=== PATIENT | male | born 1945 | race Caucasian/White ===

== ENCOUNTER 2017-04-15 07:46 | Inpatient (IN) | payer BC, OTHER ==
[2017-03-17 10:54] VITALS: BMI 39.0
--- NOTE | 2017-03-17 11:39 | PAT Medication Instructions ---
Service Date Mar 17, 2017. Current Home Medication List Aspirin (Aspirin), 1 TAB PO HS Calcium/Vitamin D (Os-Swapnil 500 Plus D), 1 TAB PO BID Fish Oil (White Bird-3), 1 CAP PO BID Epfzpalvecc-Yqqalwhghkm-Msv C- (Glucosamine Chondroitin), 1 CAP PO BID Metoprolol Succ (Toprol Xl) (Toprol-Xl), 12.5 MG PO BID Naproxen (Naprosyn), 375 MG PO BID Polypodium Leucotomos (Heliocare), 1 CAP PO QAM Prednisone Tab (Prednisone), 10 MG PO QAM Rosuvastatin Calcium (Crestor), 20 MG PO QPM Triamcinolone Acet 0.025% (Aristocort 0.025%), 1 TOP TID PRN for SKIN IRRITATION [Doxipen Ec ], 10 MG PO HS Medication Instructions For Your Scheduled Surgery - Check with surgeon for instructions: Naproxen (Naprosyn), 375 MG PO BID - Hold the following medications 2 weeks prior to surgery: Fish Oil (White Bird-3), 1 CAP PO BID Mjkxhsbungd-Gyvrfuebann-Zqd C- (Glucosamine Chondroitin), 1 CAP PO BID Polypodium Leucotomos (Heliocare), 1 CAP PO QAM - Hold the following medications 24 hours prior to surgery: Triamcinolone Acet 0.025% (Aristocort 0.025%), 1 TOP TID PRN for SKIN IRRITATION - Hold the following medications the morning of surgery: Calcium/Vitamin D (Os-Swapnil 500 Plus D), 1 TAB PO BID - Take the following medications the morning of surgery with a sip of water: Prednisone Tab (Prednisone), 10 MG PO QAM Metoprolol Succ (Toprol Xl) (Toprol-Xl), 12.5 MG PO BID - Take the following medications as scheduled the night before surgery: Rosuvastatin Calcium (Crestor), 20 MG PO QPM Metoprolol Succ (Toprol Xl) (Toprol-Xl), 12.5 MG PO BID Aspirin (Aspirin), 1 TAB PO HS (okay to continue per surgeon) [Doxipen Ec ], 10 MG PO HS If you have any questions please call us at [phone] or [phone] or [phone]
[2017-03-17 12:09] LABS: BASO % 0.3 %; BASO ABS # 0.04 K/uL (0-0.2); COMPLETE YES; EOS % 1.6 %; HEMATOCRIT 43.1 % (42-52); IG% 0.4 %; LYMPH % 13.8 %; LYMPH ABS # 1.87 K/uL (1.2-3.4); MEAN CELL VOLUME 90.7 fL (80-100); MEAN CORPUSCULAR HEMOGLOBIN 31.4 pg (25-34); MEAN CORPUSCULAR HGB CONC 34.6 g/dl (32-36); MEAN PLATELET VOLUME 8.7 fL (7.4-10.4); MONO % 5.4 %; NEUT % 78.5 %; PLATELET COUNT 211 K/uL (130-400); RED BLOOD COUNT 4.75 M/uL (4.7-6.1); WHITE BLOOD COUNT 13.58 K/uL (4.8-10.8)
[2017-03-17 12:19] LABS: PROTHROMBIN TIME (PATIENT) 10.3 SECONDS (9.0-12.0)
[2017-03-17 12:30] LABS: URINE APPEARANCE CLEAR (CLEAR); URINE BILIRUBIN NEG (NEG); URINE COLOR YELLOW; URINE NITRITE NEG (NEG); URINE SPECIFIC GRAVITY 1.017 (1.000-1.030); UROBILINOGEN NEG (NEG)
[2017-03-17 12:45] LABS: MANUAL MICROSCOPIC REQUIRED? NO; REVIEW REQ? NO
--- NOTE | 2017-03-17 12:50 | DIAGNOSTIC IMAGING REPORT ---
CHEST PREADMISSION(PA/LAT) HISTORY: 71 years Male preoperative exam. No chest complaints. COMPARISON: None available TECHNIQUE: Frontal and lateral views of the chest. FINDINGS: The cardiac silhouette is enlarged with obscuration of the left heart border suggesting left basilar atelectasis or scarring. There is atherosclerosis of the aorta. Prior median sternotomy. No pneumothorax or pleural effusion. There is moderate osteoarthritis of the right AC joint. The bones are grossly intact. IMPRESSION: Mild left basal atelectasis/scarring with otherwise unremarkable chest. The above report was generated using voice recognition software. It may contain grammatical, syntax or spelling errors. Electronically signed by: Ceasar Armenta M.D. 03/17/2017 12:49 PM Dictated Date/Time: 03/17/2017 12:47 PM
[2017-03-17 12:55] LABS: ESTIMATED AVERAGE GLUCOSE 163 mg/dl; HA1C FLAG Normal (Normal)
[2017-03-17 13:56] LABS: BUN/CREATININE RATIO 17.3 (10-20); CALCIUM 9.7 mg/dl (8.5-10.1); POTASSIUM 4.8 mmol/L (3.5-5.1)
--- NOTE | 2017-04-14 09:56 | HISTORY & PHYSICAL EXAMINATION ---
DATE OF ADMISSION: 04/15/2017 CHIEF COMPLAINT: Right hip pain. HISTORY OF PRESENT ILLNESS: The patient is a 71-year-old gentleman with known osteoarthritis about his right hip. He takes naproxen twice daily, he takes glucosamine chondroitin for osteoarthritis. He has pain with prolonged weightbearing and standing activities. He has difficulty with any kneeling, bending, or squatting activities. Due to ongoing pain and disability, the patient now desires to proceed with right total hip arthroplasty. PAST MEDICAL HISTORY: Coronary artery disease status post CABG, hypertension, hyperlipidemia, obesity, mild calcific aortic stenosis, obstructive sleep apnea, hypertension. PAST SURGICAL HISTORY: Left ankle, bypass surgery. MEDICATIONS: Aspirin 81 mg at bedtime, calcium 600 plus D twice daily, Crestor 20 mg daily, doxepin 10 mg 2 capsules daily, fish oil 1000 mg daily, glucosamine chondroitin daily, Heliocare 240 mg daily, metoprolol tartrate 25 mg half tablet 2 times daily, naproxen 375 mg twice daily, nitroglycerin 0.4 mg sublingual p.r.n. chest pain. ALLERGIES: No known drug allergies. SOCIAL HISTORY AND REVIEW OF SYSTEMS: Noncontributory. PHYSICAL EXAMINATION: GENERAL: Well-nourished, well-developed, obese male who appears his stated age. HEAD, EYES, EARS, NOSE, AND THROAT: Normocephalic, atraumatic, extraocular movements intact, oropharynx pink and moist. NECK: Supple without adenopathy. LUNGS: Clear to auscultation. HEART: Regular rate and rhythm. ABDOMEN: Soft, nontender, nondistended, obese. EXTREMITIES: The upper extremities are within normal limits. The right hip demonstrates limited range of motion. There is limitation of internal/external rotation with pain at end range. X-RAYS: X-rays were reviewed. He has severe osteoarthritis about the right hip with complete loss of the joint space. There are osteophytes about the acetabulum. ASSESSMENT: Right hip degenerative joint disease. PLAN: Risks versus benefits were discussed. Consent was obtained. The patient's primary care physician is Dr. Hubbard. His safety leader is [facility], Amanda Martinez, nurse practitioner. Will proceed with right total hip arthroplasty upon preoperative workup and medical clearance.
[~2017-04-15] VITALS: Ht 160 cm; Wt 100.7 kg
[2017-04-15] VITALS (9 sets, daily range): BP systolic 100–142; BP diastolic 55–96; PULSE 68–85; TEMP 36.4–36.8; O2SAT 93–97; Ht 160 cm; Wt 100.7 kg
[2017-04-15] MEDS: TRANEXAMIC ACID INJ 1,000 MG in SODIUM CHLORIDE 0.9% 100ML 100 ML IV SCH ×2 (06:30→10:24)
[~2017-04-15 07:46] MED LIST: ACETAMINOPHEN 500 MG TAB PO SCH; ASPI1TAB83 PO; BUPIVACAINE 0.5 % 5 MG/1 ML PF 10ML VIAL ONE; CALC500C70 PO; CEFAZOLIN 3000 MG/65 ML D5W 65 ML IV SCH; CRS/10 PO; CeleBREX 200 MG CAP PO SCH; DEXAMETHASONE 4 MG TAB PO SCH; FAMOTIDINE 20 MG TAB PO SCH; GABAPENTIN 300 MG CAP PO SCH; GLUC1CAP35 PO; LACTATED RINGER'S 1000ML 1,000 ML IV SCH; LACTATED RINGER'S 1000ML 500 ML IV ONE; METO25TA3 PO; METOCLOPRAMIDE HCL 10 MG TAB PO SCH; NAPR250T2 PO; OMEG10007 PO; PRED10TA PO; ROPIVACAINE 5MG/ML 30 ML 150 MG, BUPIVACAINE/EPINEPHR 0.5% MPF 30 ML, KETOROLAC TROMETH... INFIL SCH; TRMCR2515 TOP; [UNRECOGNIZED DRUG - CODE] PO; [UNRECOGNIZED DRUG - OTHER] PO
--- NOTE | 2017-04-15 09:21 | History & Physical Bridge Note ---
H&P Re-Evaluation Bridge Note: I have examined the patient, reviewed the History & Physical and in the interval since the performance of the History & Physical I have noted the following changes of clinical significance: No changes noted
[2017-04-15] MEDS ORDERED: MIDAZOLAM HCL 1 MG/ML 2ML VIAL ONE ×2 (09:25→09:26)
[2017-04-15] MEDS ORDERED: ORTHO JOINT ANESTHETIC ONE (09:50)
[2017-04-15] MEDS ORDERED: POVIDONE-IODINE OP SOLN 30 ML BTL ONE (09:50)
[2017-04-15] MEDS ORDERED: BACITRACIN 50000 UNIT VIAL ONE (09:50)
[2017-04-15] MEDS ORDERED: VASOPRESSIN 20 UNIT/ML VIAL ONE (10:42)
--- NOTE | 2017-04-15 11:42 | [facility] Post Operative Brief Note ---
Immediate Operative Summary Operative Date Apr 15, 2017. Pre-Operative Diagnosis Right Hip Degenerative Joint Disease Post-Operative Diagnosis Right Hip Degenerative Joint Disease Procedure(s) Performed Right Total Hip Arthroplasty--Uncemented Surgeon Dr. Lopez Forensic Chemist Surgeon(s) MELVIN Rider Estimated Blood Loss 100 ml Findings severe OA hip Specimens A. Right Femoral Head Disposition Recovery Room / PACU
[2017-04-15] MEDS ORDERED: ATROPINE SULFATE 0.1 MG/ML 5ML SYR IV PRN (11:45)
[2017-04-15] MEDS ORDERED: PHENYLEPHRINE 100MCG/ML 5ML SYR IV PRN (11:45)
[2017-04-15] MEDS ORDERED: HYDROmorphone INJ 2 MG/ML SYR/VIAL IV PRN (11:45)
[2017-04-15] MEDS ORDERED: ONDANSETRON INJ 2 MG/ML 2 ML VIAL IV PRN ×2 (11:45→12:00)
[2017-04-15] MEDS ORDERED: EpHEDrine SULFATE INJ 50 MG/ML AMP IV PRN (11:45)
--- NOTE | 2017-04-15 11:52 | OPERATIVE REPORT ---
DATE OF OPERATION: 04/15/2017 PREOPERATIVE DIAGNOSIS: Osteoarthritis right hip. POSTOPERATIVE DIAGNOSIS: Osteoarthritis right hip. PROCEDURE: Right connective total hip arthroplasty. SURGEON: Dr. Lopez. UTILIZATION MANAGEMENT UM NURSE: Semaj Joya PA-C. ANESTHESIA: Spinal. COMPLICATIONS: None. OPERATION AND FINDINGS: PROCEDURE: Following induction of adequate spinal anesthesia, the patient was placed in left lateral decubitus position and right Aj-Langenbeck incision was made. Subcutaneous tissue was sharply dissected. Electrocautery used for hemostasis. The fascia was incised throughout the length of the wound and a lr scissor placed beneath the short external rotators. The pyriformis was tagged with #1 Vicryl. The short external rotators were divided from the posterior aspect of the femur using electrocautery. These were swept posteriorly. A T-capsulotomy incision was made and the hip was dislocated using a combination of flexion, adduction, and internal rotation. Exposure of the femoral neck with old-style Hohmann and a blunt Hohmann was carried out and a femoral rasp was utilized as a guide for making the appropriate level femoral neck cut. This bone fragment was removed and reserved on the back table. Next, attention was turned to the acetabulum where bone hook was used to retract the femur while the offset retractors were placed anterior and posteriorly. A double-angled Hohmann was placed in superior and anterior position exposing the acetabulum nicely. Acetabular labrum as well as posterior capsule elements were removed using a long knife and a long pickup. Fovea centralis was cleared of all soft tissue. Sequential reamings were carried up to a size 54 and decision was made to proceed with impaction of a size 54 trabecular metal cup. This was impacted and held using a single 35 mm bone screw. The acetabular liner was placed with 15 of elevated posterior wall in the superior and posterior position. Next, attention was turned to the femoral portion of the case where a Bovie and pickup was used to further clear short external rotators from their insertion on the femur. Box osteotome was used to gain access to the femoral canal and the T-handled rasp and a rattail rasp were used to further open and lateral the canal. Sequentially raspings were carried up to a size 4 which gave good fit and fill of the proximal femur. A trial reduction was carried out and size 4 offset femoral neck component was chosen as the size to be used. A -2.5 x 36 mm ceramic femoral head was impacted into position, +0 head was utilized. The trial reduction was stable in all degrees of rotation with no [id number] impingement. The hip was dislocated. The trial components were removed and the final femoral stem, neck, and femoral head combination were assembled on the back table and impacted into position. Hip was relocated. Range of motion checked once again successful and the wound was irrigated. The pyriformis repaired to the greater trochanter using #1 Vicryl [id number] suture. A Hemovac drain was placed and the fascia was closed using #1 Vicryl, subcutaneous tissue was closed using 0 Dexon, and skin was closed with edward. Sterile dressing of Adaptic, 4 x 4's, ABDs, and foam tape was applied. The patient tolerated the procedure well. Recovery room stable. Due to the complex nature of the procedure, the entire surgery was performed with the operational assistance of Semaj Joya PA-C. The anesthesiologists' assistant, under direct supervision, was involved in the actual performance of all aspects of the surgical procedure including hemostasis, tissue retraction and incision, instrument management, patient positioning, and wound closure. I attest to the content of the Intraoperative Record and any orders documented therein. Any exception s are noted below.
[2017-04-15] MEDS ORDERED: PHENYLEPHRINE 100MCG/ML 5ML SYR ONE (11:55)
[2017-04-15] MEDS ORDERED: EpHEDrine SULFATE 50MG/5ML SYR ONE (11:55)
[2017-04-15] MEDS ORDERED: SUCCINYLCHOLINE 100MG/5ML SYR IV ONE (11:55)
[2017-04-15] MEDS ORDERED: ONDANSETRON INJ 2 MG/ML 2 ML VIAL ONE (11:55)
[2017-04-15] MEDS ORDERED: PROPOFOL IV EMULSION 10 MG/ML 20 ML VIAL IV ONE (11:55)
[2017-04-15] MEDS ORDERED: BISACODYL 10 MG SUPP PR PRN (12:00)
[2017-04-15] MEDS ORDERED: ZOLPIDEM TARTRATE 5 MG TAB PO PRN (12:00)
[2017-04-15] MEDS ORDERED: MoRPHine SULFATE 2 MG/ML CARP IV PRN (12:00)
[2017-04-15] MEDS ORDERED: ALUMINUM/MAGNESIUM/SIMETH (MAALOX MAX) 30 ML UDC PO PRN (12:00)
[2017-04-15] MEDS ORDERED: MAGNESIUM HYDROXIDE SUSP 30 ML UDC PO PRN (12:00)
[2017-04-15] MEDS ORDERED: METOCLOPRAMIDE HCL INJ 5 MG/ML 2 ML VIAL IV PRN (12:00)
[2017-04-15] MEDS ORDERED: SOD PHOSPHATE/SOD BIPHOSPHATE ENEMA 132 ML BTL PR PRN (12:00)
[2017-04-15] MEDS ORDERED: DiphenhydrAMINE HCL 50 MG/ML VIAL IV PRN (12:00)
--- NOTE | 2017-04-15 13:02 | DIAGNOSTIC IMAGING REPORT ---
AP PELVIS AND RIGHT HIP 2 VIEWS CLINICAL HISTORY: Postop hip arthroplasty COMPARISON STUDY: No previous studies for comparison. FINDINGS: There are postsurgical changes of a total right hip arthroplasty. The acetabular and femoral components appear well seated. Overlying surgical drains are visualized. There are no acute fractures. There are no dislocations. IMPRESSION: Postsurgical changes of a total right hip arthroplasty. Electronically signed by: Andre Jones M.D. 04/15/2017 1:01 PM Dictated Date/Time: 04/15/2017 1:00 PM
[2017-04-15] MEDS ORDERED: MoRPHine SULFATE 10 MG/ML CARP/VIAL IV PRN (13:15)
[2017-04-15] MEDS ORDERED: MoRPHine SULFATE 4 MG/ML 1 ML CARP\\VIAL IV PRN (13:15)
--- NOTE | 2017-04-15 14:03 | Anesthesiology Progress Note ---
Anesthesia Post Op Note Date & Time Apr 15, 2017 at 13:36 Vital Signs Pain Intensity: 0 Vital Signs Past 12 Hours Date Time Temp Pulse Resp B/P (MAP) Pulse Ox O2 Delivery O2 Flow Rate FiO2 04/15/17 13:10 110/61 04/15/17 13:05 37.2 70 18 102/48 96 Oxymask 2 04/15/17 13:00 109/60 04/15/17 12:55 71 18 91/39 96 Oxymask 2 04/15/17 12:45 67 18 100/43 98 Oxymask 2 04/15/17 12:35 70 18 107/79 98 Oxymask 5 04/15/17 12:25 67 18 103/55 98 Oxymask 10 04/15/17 12:16 36.2 67 20 92/58 96 Oxymask 10 04/15/17 08:42 36.8 68 20 142/96 95 Room Air Notes Mental Status: alert / awake / arousable, participated in evaluation Pt Amnestic to Procedure: Yes Nausea / Vomiting: adequately controlled Pain: adequately controlled Airway Patency, RR, SpO2: stable & adequate BP & HR: stable & adequate Hydration State: stable & adequate Anesthetic Complications: no major complications apparent Anesthetic Complications: When the spinal was placed pre-operatively it was done by the paramedian approach with a five inch quincke due to a significant amount of soft tissue and marked arthritis. He was given isobaric bupivacaine 2.8 ml. His first BP post procedure was in the 50s systolic. It was brought up with a combination of ephedrine and phenylephrine to the 90s. A few other doses of both drugs were given to support his pressure along with iv fluids. On the way to the o.r. he began to have trouble breathing and the glide scope was brought to the room. The patient was bagged for a few minutes and he was induced with propofol, given succinylcholine and intubated easily with the glidescope. He was given vasopressin 2 units which stabilized his blood pressure. He was extubated at the end of the case and taken to the PACU where he had an uneventful recovery.
[2017-04-15] MEDS: D5W AND 1/2NSS + 20MEQ KCL 1,000 ML IV SCH (14:41)
[2017-04-15] MEDS: KETOROLAC TROMETHAMINE 15 MG/ML VIAL IV. SCH ×2 (15:45→21:36)
[2017-04-15] MEDS ORDERED: TRANEXAMIC ACID INJ 1,000 MG in SODIUM CHLORIDE 0.9% 100ML 100 ML IV ONE (17:00)
[2017-04-15] MEDS: ACETAMINOPHEN IV 1,000 MG in EMPTY BAG 0 ML IV SCH (17:45)
[2017-04-15] MEDS: CEFAZOLIN IV 2,000 MG in DEXTROSE 5% 50ML 50 ML IV SCH (18:11)
[2017-04-15] MEDS: FERROUS GLUCONATE 324 MG TAB PO SCH (18:15)
[2017-04-15] MEDS: DOCUSATE SODIUM 100 MG CAP PO SCH (20:49)
[2017-04-15] MEDS: ROSUVASTATIN CALCIUM 10 MG TAB PO SCH (20:49)
[2017-04-15] MEDS: ASPIRIN 81 MG ECTAB PO SCH (20:49)
[2017-04-15] MEDS: METOPROLOL SUCC 25MG EXT REL TAB PO SCH (20:50)
[2017-04-15] MEDS: SENNA 8.6 MG TAB PO SCH (20:50)
[2017-04-16] MEDS: D5W AND 1/2NSS + 20MEQ KCL 1,000 ML IV SCH (00:22)
[2017-04-16] MEDS: CEFAZOLIN IV 2,000 MG in DEXTROSE 5% 50ML 50 ML IV SCH (01:55)
[2017-04-16] MEDS: ACETAMINOPHEN IV 1,000 MG in EMPTY BAG 0 ML IV SCH ×2 (01:55→10:14)
[2017-04-16] MEDS: KETOROLAC TROMETHAMINE 15 MG/ML VIAL IV. SCH ×2 (03:33→10:13)
[2017-04-16 03:55] VITALS: BP 114/62; PULSE 75; TEMP 36.6; O2SAT 93
[2017-04-16 05:49] LABS: COMPLETE YES; EOS % 0.1 %; HEMATOCRIT 34.4 % (42-52); IG% 0.4 %; LYMPH % 4.8 %; LYMPH ABS # 0.74 K/uL (1.2-3.4); MEAN CELL VOLUME 89.8 fL (80-100); MEAN CORPUSCULAR HEMOGLOBIN 30.5 pg (25-34); MEAN PLATELET VOLUME 8.9 fL (7.4-10.4); MONO % 8.8 %; NEUT % 85.9 %; PLATELET COUNT 198 K/uL (130-400); RED BLOOD COUNT 3.83 M/uL (4.7-6.1); WHITE BLOOD COUNT 15.27 K/uL (4.8-10.8)
[2017-04-16 06:57] VITALS: BP 134/80; PULSE 72; TEMP 36.4; O2SAT 96
--- NOTE | 2017-04-16 07:50 | Orthopedic Progress Note ---
Orthopedic Progress Note Date of Service Apr 16, 2017. Subjective Post OP Day: 1 Reports: feeling well Objective calves soft nontender, N/V intact, dressing C/D/I (Hemovac d/c'd), toes mobile Date Time Temp Pulse Resp B/P (MAP) Pulse Ox O2 Delivery O2 Flow Rate FiO2 04/16/17 06:57 36.4 72 18 134/80 (98) 96 Room Air 04/16/17 03:55 36.6 75 17 114/62 (79) 93 Room Air 04/16/17 00:00 Room Air 04/15/17 22:55 36.7 77 18 123/78 (93) 94 Room Air 04/15/17 19:57 36.7 85 19 110/59 (76) 93 Room Air 04/15/17 19:00 96 Room Air 04/15/17 16:51 36.4 81 21 118/70 (86) 94 Room Air 04/15/17 15:43 36.8 82 20 103/55 (71) 96 Nasal Cannula 2.0 04/15/17 14:42 80 19 103/60 (74) 96 Nasal Cannula 2.0 04/15/17 14:14 73 18 109/67 (81) 97 Nasal Cannula 2.0 04/15/17 13:30 Room Air 04/15/17 13:30 96 Nasal Cannula 2.0 04/15/17 13:30 36.6 76 16 100/63 (75) 96 Nasal Cannula 2.0 04/15/17 13:10 110/61 04/15/17 13:05 37.2 70 18 102/48 96 Oxymask 2 04/15/17 13:00 109/60 04/15/17 12:55 71 18 91/39 96 Oxymask 2 04/15/17 12:45 67 18 100/43 98 Oxymask 2 04/15/17 12:35 70 18 107/79 98 Oxymask 5 04/15/17 12:25 67 18 103/55 98 Oxymask 10 04/15/17 12:16 36.2 67 20 92/58 96 Oxymask 10 04/15/17 08:42 36.8 68 20 142/96 95 Room Air Laboratory Results 24 Hours: Test 04/16/17 05:19 White Blood Count 15.27 K/uL Red Blood Count 3.83 M/uL Hemoglobin 11.7 g/dL Hematocrit 34.4 % Mean Corpuscular Volume 89.8 fL Mean Corpuscular Hemoglobin 30.5 pg Mean Corpuscular Hemoglobin Concent 34.0 g/dl Platelet Count 198 K/uL Mean Platelet Volume 8.9 fL Neutrophils (%) (Auto) 85.9 % Lymphocytes (%) (Auto) 4.8 % Monocytes (%) (Auto) 8.8 % Eosinophils (%) (Auto) 0.1 % Basophils (%) (Auto) 0.0 % Neutrophils # (Auto) 13.11 K/uL Lymphocytes # (Auto) 0.74 K/uL Monocytes # (Auto) 1.35 K/uL Eosinophils # (Auto) 0.01 K/uL Basophils # (Auto) 0.00 K/uL Assessment & Plan Assessment: 71 yo male stable POD #1 s/p right HINA Plan: 1. Med management 2. DVT prophylaxis- ASA, SCDs 3. PT/OT 4. D/C planning- home w/ HH
--- NOTE | 2017-04-16 07:51 | Discharge Instructions ---
Discharge Instructions Date of Service Apr 16, 2017. Admission Reason for Admission: Right Hip Osteoarthritis Discharge Discharge Diagnosis / Problem: Right hip arthritis Discharge Goals Goal(s): Decrease discomfort, Improve function Activity Recommendations Activity Limitations: as noted below Weightbearing Status: Right weightbearing (as tolerated) . Instructions / Follow-Up Instructions / Follow-Up ACTIVITY RECOMMENDATIONS: SELF CARE INSTRUCTIONS AFTER TOTAL HIP REPLACEMENT Until the incision and soft tissues around your hip have healed, there is a possibility that the hip prosthesis could dislocate. A. Observe the following precautions to prevent dislocation: 1. Don't bend your hip greater than 90 degrees. 2. Avoid crossing your legs or ankles while standing or lying. 3. Sit with your feet placed 6 inches apart. 4. When sitting, keep your knees below your hips. Sit on a firm surface, avoid deep, soft chairs and couches. Use an elevated toilet seat in the bathroom. 5. Don't bend over at the waist. Use a long handled shoehorn and a sock aid to help you put on your shoes and socks. A metal engineering process worker can help you olive picker objects that are too high or too low to reach. 6. Keep car riding to a minimum for at least one month after surgery. B. Your balance may be shaky for a while. Use crutches or a walker until directed by your doctor. C. Use hand rails when walking on stairs. D. Wear low heeled shoes with non-slip soles. E. Be sure that your floors are free of things that could trip you - throw rugs , electrical cords, small objects. Avoid wet and waxed floors, especially with crutches and canes. F. Try to walk several times a day with rest periods between. G. Continue with all the exercises taught to you in the hospital. Again, make walking a part of your daily routine. SPECIAL CARE INSTRUCTIONS: VERY IMPORTANT TO READ AND REVIEW A. You may still be at risk for phlebitis and blood clots. 1. Wear surgical stockings (LIEN hose) for 2 weeks after surgery to improve circulation and reduce swelling. 2. Take Aspirin 81mg twice daily for 4 weeks or as directed by your doctor. This is your blood thinner. 3. High risk patients may be prescribed a stronger blood thinner if necessary. 4. If you are on Coumadin normally, your family doctor/recovery coordinator should monitor your blood work. Expect a phone call the day of or the day after bloodwork is drawn to adjust your dosage. B. You must take antibiotics before having dental work, bladder, bowel and other surgery. Your doctor will provide you with a permanent card to carry describing precautions. C. Call [facility] if you have a fever, redness or swelling around the incision, cloudy drainage from incision, or sudden increase in pain in your hip, not relieved by your regular pain medication. D. Please call the office at if you have any concerns or questions about your operation or recovery. * YOU MAY SHOWER, NO TUB BATHS UNTIL CLEARED BY YOUR DOCTOR. * WEAR LIEN HOSE 20 HOURS PER DAY FOR 2 WEEKS. * YOU SHOULD USE A WALKER OR CRUTCHES FOR 2-4 WEEKS. THIS WILL HELP PREVENT STRAIN ON YOUR HIP MUSCLE AND ALLOW IT TO HEAL PROPERLY. YOU MAY WEAN TO A CANE TOLERATED. * MOST PATIENTS WILL HAVE HOME NURSING FOR THERAPY. IF YOU DECIDE TO DO OUTPATIENT PHYSICAL THERAPY, PLEASE SCHEDULE THIS 3 TIMES PER WEEK. Silverlon- This is a large adhesive bandage that contains silver ions. This helps your incision heal by fighting off bacteria and protecting it from the outside environment. You are permitted to shower with this dressing. This will remain on your incision for 7 days and then should be removed. Some visible blood or drainage through the dressing window is normal. If there is significant drainage or leaking noted before the 7 days notify your doctor's office immediately. Once removed, keep incision clean and dry. If there is any drainage or redness noted, please call your surgeon. FOLLOW UP VISIT: If appointment is not already scheduled: Please call [facility] to make a follow-up appointment for 2 weeks after your surgery at . Current Hospital Diet Patient's current hospital diet: Regular Diet Discharge Diet Recommended Diet: Regular Diet Procedures Procedures Performed: Right Total Hip Arthroplasty--Uncemented Pending Studies Studies pending at discharge: no Laboratory Results Hemoglobin A1c Test 03/17/17 11:46 Range/Units Estimated Average Glucose 163 mg/dl Hemoglobin A1c 7.3 H 4.5-5.6 % Medical Emergencies . Who to Call and When: Medical Emergencies: If at any time you feel your situation is an emergency, please call 911 immediately. . Non-Emergent Contact Non-Emergency issues call your: Surgeon Call Non-Emergent contact if: temperature is above 101.5, your pain is not controlled, wound has increased drainage, wound has increased redness . "Provider Documentation" section prepared by Semaj Joya PA-C. . VTE Core Measure Inpt VTE Proph given/why not?: Other Anticoagulation (ASA 81mg bid), T.E.D. Stockings, SCD's [place] Drug Monitoring Program Search Results: patient reviewed within database, no issues identified
[2017-04-16] MEDS: FERROUS GLUCONATE 324 MG TAB PO SCH ×3 (08:36→18:17)
[2017-04-16] MEDS: DOCUSATE SODIUM 100 MG CAP PO SCH ×2 (08:37→20:48)
[2017-04-16] MEDS: ASPIRIN 81 MG ECTAB PO SCH ×2 (08:37→20:48)
[2017-04-16] MEDS: PANTOprazole SOD 40 MG TAB PO SCH (08:37)
[2017-04-16] MEDS: METOPROLOL SUCC 25MG EXT REL TAB PO SCH ×2 (08:38→20:48)
--- NOTE | 2017-04-16 10:01 | Anesthesiology Progress Note ---
Anesthesia Post Op Note Date & Time Apr 16, 2017 at 10:00 Vital Signs Pain Intensity: 0.0 Vital Signs Past 12 Hours Date Time Temp Pulse Resp B/P (MAP) Pulse Ox O2 Delivery O2 Flow Rate FiO2 04/16/17 07:34 Room Air 04/16/17 06:57 36.4 72 18 134/80 (98) 96 Room Air 04/16/17 03:55 36.6 75 17 114/62 (79) 93 Room Air 04/16/17 00:00 Room Air 04/15/17 22:55 36.7 77 18 123/78 (93) 94 Room Air Notes Mental Status: alert / awake / arousable, participated in evaluation Pt Amnestic to Procedure: Yes Nausea / Vomiting: adequately controlled Pain: adequately controlled Airway Patency, RR, SpO2: stable & adequate BP & HR: stable & adequate Hydration State: stable & adequate Anesthetic Complications: no major complications apparent
[2017-04-16 14:51] VITALS: BP 137/76; PULSE 72; TEMP 36.7; O2SAT 95
[2017-04-16] MEDS: OXYCODONE HCL IR 5 MG TAB (IMMEDIATE RELEASE) PO PRN ×2 (18:18→23:33)
[2017-04-16] MEDS: SENNA 8.6 MG TAB PO SCH (20:48)
[2017-04-16] MEDS: ROSUVASTATIN CALCIUM 10 MG TAB PO SCH (20:48)
[2017-04-16] MEDS: CeleBREX 200 MG CAP PO SCH (20:49)
[2017-04-16 23:46] VITALS: BP 162/83; PULSE 61; TEMP 36.4; O2SAT 97
--- NOTE | 2017-04-17 06:52 | Orthopedic Progress Note ---
Orthopedic Progress Note Date of Service Apr 17, 2017. Subjective Post OP Day: 2 Reports: feeling well, pain controlled w PO medications, Denies: complaints, SOB , nausea / vomiting, light headedness, calf pain Additional Notes: Patient states that he feels well. He did get a little sore from walking around the hallways but feels well overall. Objective calves soft nontender, hip located, capillary refill less than 2 sec., dressing C/D/I, A&O x3, toes mobile Date Time Temp Pulse Resp B/P (MAP) Pulse Ox O2 Delivery O2 Flow Rate FiO2 04/16/17 23:46 36.4 61 17 162/83 (109) 97 Room Air 04/16/17 23:15 Room Air 04/16/17 15:10 Room Air 04/16/17 14:51 36.7 72 16 137/76 (96) 95 Room Air 04/16/17 07:34 Room Air 04/16/17 06:57 36.4 72 18 134/80 (98) 96 Room Air Assessment & Plan Assessment: 71 yo male stable POD #2 s/p right HINA Plan: 1. Med management 2. DVT prophylaxis- ASA, SCDs 3. PT/OT 4. D/C planning- home w/ HH - TODAY Discharge Planning Discharge Planning: home with home health Pain Management: Oxy IR DVT Prophylaxis: ASA Therapy: Physical Therapy
[2017-04-17 06:53] VITALS: BP 158/81; PULSE 60; TEMP 36.4; O2SAT 95
[2017-04-17] MEDS ORDERED: RXC5 PO (06:58)
[2017-04-17] MEDS ORDERED: CLB200 PO (06:58)
[2017-04-17] MEDS ORDERED: ASPEC81 PO (06:58)
[2017-04-17] MEDS ORDERED: ONDA8TAB6 PO (06:58)
[2017-04-17] MEDS: DOCUSATE SODIUM 100 MG CAP PO SCH (07:09)
[2017-04-17] MEDS: ASPIRIN 81 MG ECTAB PO SCH (07:09)
[2017-04-17] MEDS: PANTOprazole SOD 40 MG TAB PO SCH (07:10)
[2017-04-17] MEDS: METOPROLOL SUCC 25MG EXT REL TAB PO SCH (07:10)
[2017-04-17] MEDS: FERROUS GLUCONATE 324 MG TAB PO SCH (07:10)
[2017-04-17] MEDS: CeleBREX 200 MG CAP PO SCH (07:11)
[2017-04-17] MEDS: OXYCODONE HCL IR 5 MG TAB (IMMEDIATE RELEASE) PO PRN (07:20)
[2017-04-17 08:43] VITALS: BP 158/81; PULSE 60; TEMP 36.4; O2SAT 95
--- NOTE | 2017-05-05 10:23 | DISCHARGE SUMMARY ---
CHIEF COMPLAINT: Right hip pain. Please see complete history and physical examination. HOSPITAL COURSE: The patient underwent right total hip arthroplasty without complication. He tolerated the procedure well and was discharged to recovery room in stable condition. His postoperative course was relatively uneventful. His postoperative pain was reasonably well controlled with a combination of spinal anesthesia, intraoperative joint injection, IV, and oral pain medications. He was started on aspirin for DVT prophylaxis. He also utilized LIEN stockings and SCDs for additional prophylaxis. His H&H was stable and he did not require transfusion. His surgical drain was discontinued on postoperative day 1, his surgical dressing will remain in place for approximately 7 days postoperative. He tolerated postop physical therapy reasonably well as he was ambulating and transferring appropriately. He was observing all total hip precautions. He was discharged home on postoperative day 2. He will continue his physical therapy at home. He will continue his aspirin for DVT prophylaxis and follow up in our office in approximately 10-14 days for his initial postop evaluation.
== END 2017-04-17 09:50 | disposition home health service (06) | DRG 470 ==
LOC: C.ACU 07:46 → C.3E 09:15 → ENRESERV 13:04
PROC: 0SR90JA Replacement of Right Hip Joint with Synthetic Substitute, Uncemented, Open Approach (ICD-10-PCS; principal; 2017-04-15 10:00)
DX: M16.11 Unilateral primary osteoarthritis, right hip (principal); I25.10 Atherosclerotic heart disease of native coronary artery without angina pectoris; I10 Essential (primary) hypertension; E78.5 Hyperlipidemia, unspecified; E66.9 Obesity, unspecified; G47.33 Obstructive sleep apnea (adult) (pediatric); Z79.82 Long term (current) use of aspirin; Z79.899 Other long term (current) drug therapy; Z95.1 Presence of aortocoronary bypass graft